=== PATIENT | female | born 1975 | race American Indian/Alaskan Native ===

== ENCOUNTER 2016-06-20 20:10 | Emergency (ER) | payer SELFPAY ==
[2016-06-21 04:03] LABS: Bilirubin,Urine NEG (Negative); Blood,Urine NEG (Negative); Ketones,Urine TR mg/dL (Negative); Leukocyte Esterase,Urine TR (Negative); Mucus,Urine 3+ /HPF; Nitrite,Urine NEG (Negative); Urobilinogen,Urine < 2.0 mg/dL (<2.0)
[2016-06-21] MEDS ORDERED: TYLENOL PO ONE (15:47)
[2016-06-21] MEDS ORDERED: MORPHINE IM ONE (15:47)
--- NOTE | 2016-06-21 15:47 | Emergency Department Report ---
ED General Adult HPI - General Chief complaint: Abdominal Pain Stated complaint: ABDOMINAL AND R LEG PAIN Time Seen by Provider: 06/21/16 15:26 Source: patient, RN notes reviewed Mode of arrival: Ambulatory Limitations: No Limitations - History of Present Illness Initial comments: This is a 40-year-old female, previously unknown to me. Last menstrual period is April 25. She is 4, para 3. Denies chronic medical conditions. Patient presents to the ER with atraumatic right gluteal pain at radius down the right lower extremity to the posterior leg. Pain has been going on for weeks. Increases with range of motion, decreases with rest. It does not radiate distal to the knee. There is no bladder or bowel retention or incontinence. There is no saddle anesthesia. There is no chest pain or shortness of breath. admits to mild abdominal discomfort. This is suprapubic. Has no exacerbating or relieving factors. There is no right lower quadrant pain. No irritative or obstructive urinary symptoms. -: Gradual, week(s) Location: abdomen, right, lower extremity Radiation: extremity Severity scale (0 -10): 9 Consistency: intermittent Improves with: rest Worsens with: movement Associated Symptoms: other (patient incidentally also describes chronic right great toe pain for the past month, after she accidentally dropped something on it.). denies: confusion, chest pain, cough, diaphoresis, fever/chills, headaches, loss of appetite, malaise, nausea/vomiting, rash, seizure, shortness of breath, syncope, weakness - Related Data Previous Rx's Medication Instructions Recorded Last Taken Type Amoxicillin [Amoxicillin TAB] 875 mg PO BID #20 tablet 06/15/14 Unknown Rx Ondansetron [Zofran Odt] 4 mg PO Q8HR PRN #20 tab.rapdis 06/15/14 Unknown Rx Hyoscyamine Subl [Levsin Sl 0.125 0.125 mg SL Q4HR PRN #15 tablet 06/07/15 Unknown Rx TAB] Loperamide [Imodium] 2 mg PO Q2HR #20 capsule 06/07/15 Unknown Rx Ondansetron [Zofran Odt] 4 mg PO Q8HR PRN #10 tab.rapdis 06/07/15 Unknown Rx Famotidine [Pepcid] 20 mg PO BID #10 tablet 02/13/16 Unknown Rx diphenhydrAMINE [Benadryl CAP] 50 mg PO QHS PRN #5 capsule 02/13/16 Unknown Rx predniSONE [Deltasone] 50 mg PO QDAY #5 tab 02/13/16 Unknown Rx Doxylamine/Pyridoxine HCl 1 each PO QHS PRN #30 tablet. 06/21/16 Unknown Rx [Presley Maldonado 10-10 mg Tablet] Vit W-Ca,Fe,FA(<1 mg) 1 each PO QDAY #30 tablet 06/21/16 Unknown Rx [ Vitamins] Allergies Allergy/AdvReac Type Severity Reaction Status Date / Time No Known Allergies Allergy Unverified 06/14/14 23:46 ED Review of Systems ROS: Stated complaint: ABDOMINAL AND R LEG PAIN Other details as noted in HPI Constitutional: denies: fever, malaise Eyes: denies: vision change ENT: denies: epistaxis Respiratory: denies: cough Cardiovascular: denies: palpitations Gastrointestinal: abdominal pain Genitourinary: denies: urgency, dysuria, discharge Musculoskeletal: back pain, arthralgia, myalgia Skin: change in color Neurological: paresthesias. denies: headache, weakness ED Past Medical Hx - Past Medical History Hx Hypertension: Yes - Surgical History Additional Surgical History: d & c 1999 - Social History Smoking Status: Current Every Day Smoker Substance Use Type: None - Medications Home Medications: Home Medications Medication Instructions Recorded Confirmed Last Taken Type Amoxicillin [Amoxicillin TAB] 875 mg PO BID #20 tablet 06/15/14 Unknown Rx Ondansetron [Zofran Odt] 4 mg PO Q8HR PRN #20 tab.rapdis 06/15/14 Unknown Rx Hyoscyamine Subl [Levsin Sl 0.125 0.125 mg SL Q4HR PRN #15 tablet 06/07/15 Unknown Rx TAB] Loperamide [Imodium] 2 mg PO Q2HR #20 capsule 06/07/15 Unknown Rx Ondansetron [Zofran Odt] 4 mg PO Q8HR PRN #10 tab.rapdis 06/07/15 Unknown Rx Famotidine [Pepcid] 20 mg PO BID #10 tablet 02/13/16 Unknown Rx diphenhydrAMINE [Benadryl CAP] 50 mg PO QHS PRN #5 capsule 02/13/16 Unknown Rx predniSONE [Deltasone] 50 mg PO QDAY #5 tab 02/13/16 Unknown Rx Doxylamine/Pyridoxine HCl 1 each PO QHS PRN #30 tablet. 06/21/16 Unknown Rx [Presley Maldonado 10-10 mg Tablet] Vit W-Ca,Fe,FA(<1 mg) 1 each PO QDAY #30 tablet 06/21/16 Unknown Rx [ Vitamins] ED Physical Exam - General Limitations: No Limitations General appearance: alert, in no apparent distress - Head Head exam: Present: atraumatic, normocephalic - Eye Eye exam: Present: normal appearance, EOMI. Absent: nystagmus - ENT ENT exam: Present: normal exam, normal orophraynx, mucous membranes moist, normal external ear exam - Neck Neck exam: Present: normal inspection, full ROM. Absent: tenderness, meningismus - Respiratory Respiratory exam: Present: normal lung sounds bilaterally. Absent: respiratory distress, wheezes, rales, rhonchi, stridor - Cardiovascular Cardiovascular Exam: Present: regular rate, normal rhythm. Absent: systolic murmur, diastolic murmur, rubs, gallop - GI/Abdominal GI/Abdominal exam: Present: soft, normal bowel sounds. Absent: distended, tenderness, guarding, rebound, rigid, pulsatile mass - Rectal Rectal exam: Present: normal inspection - External exam: Present: normal external exam. Absent: erythema, swelling Speculum exam: Present: normal speculum exam Bi-manual exam: Present: normal bi-manual exam, other (escorted by FRANCES Kruse) . Absent: cervical motion tendernes, adnexal tenderness, adnexal mass - Extremities Exam Extremities exam: Present: normal inspection, full ROM, tenderness (emesis to the dorsal aspect of the right great toe. The right great toe is somewhat tender. Ecchymosis is noted.), normal capillary refill, other (bilateral upper extremities are unremarkable and within normal limits. Left lower extremity unremarkable. Right lower extremity within normal limits, with the exception of right great toe pain and ecchymosis.). Absent: pedal edema, joint swelling - Back Exam Back exam: Present: normal inspection, full ROM. Absent: tenderness, CVA tenderness (R), CVA tenderness (L), muscle spasm, paraspinal tenderness, vertebral tenderness - Neurological Exam Neurological exam: Present: alert, oriented X3, normal gait, other (Extraocular movements intact. Tongue midline. No facial droop. Facial sensation intact to light touch in the V1, V2, V3 distribution bilaterally. 5 and 5 strength in 4 extremities.. Sensation is intact to light touch in 4 extremities.). Absent : motor sensory deficit (strength is intact to light touch, pinprick, proprioception.) - Psychiatric Psychiatric exam: Present: normal affect, normal mood - Skin Skin exam: Present: warm, dry, intact, normal color. Absent: rash ED Course Vital Signs 06/20/16 06/21/16 06/21/16 21:03 11:28 17:43 Temperature 98.7 F 98.1 F Pulse Rate 100 H 88 78 Respiratory 20 18 16 Rate Blood Pressure 126/81 Blood Pressure 157/94 149/61 [Right] O2 Sat by Pulse 100 100 98 Oximetry 06/21/16 17:44 Temperature Pulse Rate Respiratory 20 Rate Blood Pressure Blood Pressure [Right] O2 Sat by Pulse Oximetry - Reevaluation(s) Reevaluation #1: 06/21/16 17:03 Differential diagnosis: , urinary tract infection, radiculopathy Assessment and plan: 40-year-old female with probable radiculopathy and incidental . Currently her vital signs are reassuring. She is afebrile with no abdominal tenderness, rebound or guarding. Her initial urinalysis was contaminated. Repeat urinalysis demonstrated no indication of infectious etiology. My transabdominal ultrasound demonstrates an intrauterine with heartbeat. Formal obstetrics ultrasound has been performed , interpretation is pending. She will be treated with acetaminophen for her back pain. By her exam and history, there is no clinical indication of epidural compression syndrome at this time. Strength, sensation is intact to light touch, pinprick and proprioception in the lower extremities. Given her advanced age, she is instructed to follow up with outpatient PHOTOCOMPOSING MACHINE OPERATOR as she is high risk by her age. She may have an incidental subacute to chronic fracture in the right great toe. Does not appear to be acutely infected. Andrew tape is ordered. Patient's declined x-ray. I think that this is reasonable given that it has been present for 4 weeks. She can weight-bear as tolerated and follow up with her primary care or orthopedics for this. 06/21/16 17:08 Reevaluation #2: 06/21/16 17:45 Transvaginal ultrasound him stretch 9 week intrauterine . Incidental subchorionic hemorrhages are noted. This is the most likely etiology of the patient's discomfort. She is Rh+. She will be discharged with instructions to follow up with outpatient PHOTOCOMPOSING MACHINE OPERATOR. Return precautions were extensively reviewed. 06/21/16 17:46 - Procedure Description Procedures done: A 4 x 4 swab is folded up, and placed between the right great toe and second toe. Toes are then taped with silk tape to andrew tape/splints the right great toe. ED Medical Decision Making - Lab Data Result diagrams: 06/21/16 15:51 Vital Signs 06/20/16 06/21/16 21:03 11:28 Temperature 98.7 F 98.1 F Pulse Rate 100 H 88 Respiratory 20 18 Rate Blood Pressure 126/81 Blood Pressure 157/94 [Right] O2 Sat by Pulse 100 100 Oximetry Lab Results 06/21/16 06/21/16 06/21/16 Range/Units 02:04 15:45 15:51 WBC (4.5-11.0) K/mm3 RBC (3.65-5.03) M/mm3 Hgb (10.1-14.3) gm/dl Hct (30.3-42.9) % MCV (79-97) fl MCH (28-32) pg MCHC (30-34) % RDW (13.2-15.2) % Plt Count (140-440) K/mm3 HCG, Quant [id number] H (0-4) mIU/mL Urine Color Yellow Yellow (Yellow) Urine Turbidity Slightly-cloudy Clear (Clear) Urine pH 5.0 5.0 (5.0-7.0) Ur Specific [place] 1.033 H 1.023 (1.003-1.030) Urine Protein 30 mg/dl <15 mg/dl (Negative) mg/dL Urine Glucose (UA) 50 Neg (Negative) mg/dL Urine Ketones Tr Neg (Negative) mg/dL Urine Blood Neg Neg (Negative) Urine Nitrite Neg Neg (Negative) Urine Bilirubin Neg Neg (Negative) Urine Urobilinogen < 2.0 < 2.0 (<2.0) mg/dL Ur Leukocyte Esterase Tr Tr (Negative) Urine WBC (Auto) 29.0 H 6.0 (0.0-6.0) /HPF Urine RBC (Auto) 14.0 7.0 (0.0-6.0) /HPF U Epithel Cells (Auto) 15.0 H 1.0 (0-13.0) /HPF Urine Bacteria (Auto) 1+ (Negative) /HPF Urine Mucus 3+ 2+ /HPF Urine HCG, Qual Positive A (Negative) Blood Type Antibody Screen 06/21/16 06/21/16 Range/Units 15:51 15:55 WBC 9.4 (4.5-11.0) K/mm3 RBC 4.26 (3.65-5.03) M/mm3 Hgb 12.5 (10.1-14.3) gm/dl Hct 36.9 (30.3-42.9) % MCV 87 (79-97) fl MCH 29 (28-32) pg MCHC 34 (30-34) % RDW 12.7 L (13.2-15.2) % Plt Count 237 (140-440) K/mm3 HCG, Quant (0-4) mIU/mL Urine Color (Yellow) Urine Turbidity (Clear) Urine pH (5.0-7.0) Ur Specific [place] (1.003-1.030) Urine Protein (Negative) mg/dL Urine Glucose (UA) (Negative) mg/dL Urine Ketones (Negative) mg/dL Urine Blood (Negative) Urine Nitrite (Negative) Urine Bilirubin (Negative) Urine Urobilinogen (<2.0) mg/dL Ur Leukocyte Esterase (Negative) Urine WBC (Auto) (0.0-6.0) /HPF Urine RBC (Auto) (0.0-6.0) /HPF U Epithel Cells (Auto) (0-13.0) /HPF Urine Bacteria (Auto) (Negative) /HPF Urine Mucus /HPF Urine HCG, Qual (Negative) Blood Type O POSITIVE Antibody Screen Negative - Radiology Data Radiology results: report reviewed, image reviewed Transvaginal And transabdominal ultrasound demonstrated intrauterine . The one to 9 weeks and 1 day gestation. heart motion is noted. 2 subchorionic bleeds are noted. Complex left-sided ovarian cyst. Fundal fibroid. Critical care attestation.: If time is entered above; I have spent that time in minutes in the direct care of this critically ill patient, excluding procedure time. ED Disposition Clinical Impression: Disposition: DISCHARGED TO HOME OR SELFCARE Is pt being admited?: No Does the pt Need Aspirin: No Condition: Stable Instructions: Abdominal Pain (ED), Lumbar Radiculopathy (ED) Additional Instructions: Take the medications as directed. Rest and avoid heavy lifting. Follow up with a PHOTOCOMPOSING MACHINE OPERATOR doctor within the next week. Please note that because of your age , you are considered advanced maternal age and this is considered a high risk . Take acetaminophen every 4-6 hours as needed for pain. Return to the ER right away with new pain, worsened pain, migration of pain, fevers or chills, intractable nausea or vomiting, inability to tolerate liquid feeds. "[facility]OTOCOMPOSING [facility]PER[facility]" is a local obstetrics group. Transvaginal ultrasound demonstrated 2 areas of bleeding within the uterus. This is consistent with subchorionic hemorrhage. This is consistent with a threatened possible miscarriage. Rest and avoid heavy lifting. Avoid strenuous physical activity. Avoid sexual activity. Do not engage in sexual activity until cleared by your PHOTOCOMPOSING MACHINE OPERATOR doctor. In addition, your blood pressure was slightly elevated. This needs to be followed up by her primary care doctor or PHOTOCOMPOSING MACHINE OPERATOR doctor. Complications of hypertension during included stroke, seizure, disability. Follow up with an PHOTOCOMPOSING MACHINE OPERATOR doctor within the next 7-10 days. Prescriptions: Doxylamine/Pyridoxine HCl [Presley Maldonado 10-10 mg Tablet] 1 each PO QHS PRN #30 tablet. PRN Reason: Nausea Vit W-Ca,Fe,FA(<1 mg) [ Vitamins] 1 each PO QDAY #30 tablet Referrals: PRIMARY CAREMD [Primary Care Provider] - 3-5 Days WILLI GODINEZ MD [Staff Physician] - 3-5 Days VENTURA ONTIVEROS MD [Staff Physician] - 3-5 Days [facility] [Provider Group] - 3-5 Days
[2016-06-21 16:05] LABS: Hematocrit 36.9 % (30.3-42.9); Hemoglobin 12.5 gm/dl (10.1-14.3); Mean Corpuscular HGB Conc 34 % (30-34); Mean Corpuscular Hemoglobin 29 pg (28-32); Mean Corpuscular Volume 87 fl (79-97); Platelet Count 237 K/mm3 (140-440); Red Blood Count 4.26 M/mm3 (3.65-5.03); Red Cell Distribution Width 12.7 % (13.2-15.2); White Blood Count 9.4 K/mm3 (4.5-11.0)
[2016-06-21 16:13] LABS: Bacteria,Urine 1+ /HPF (Negative); Bilirubin,Urine NEG (Negative); Blood,Urine NEG (Negative); Ketones,Urine NEG (Negative); Leukocyte Esterase,Urine TR (Negative); Mucus,Urine 2+ /HPF; Nitrite,Urine NEG (Negative); Protein,Urine <15 mg/dL mg/dL (Negative); Urobilinogen,Urine < 2.0 mg/dL (<2.0)
--- NOTE | 2016-06-21 16:57 | Ultrasound Report ---
OB ultrasound: Endovaginal and transabdominal imaging utilized. The uterus measures approximately 7.6 x 7.9 x 9.9 cm. There appears to be a 3.1 cm fundal fibroid. There is an intrauterine gestational sac containing a yolk sac and a single pole having a crown-rump length of 23.9 mm. This is equivalent to 9 weeks one day gestation. There is heart motion of 173 beats per minute. 2 subchorionic hypodensities are noted. The larger measures 4.3 cm in size. The right ovary measures 4.9 cm containing 2 cysts measuring 13 and 25 mm. The left ovary measures 2.9 cm containing a 16mm complex cyst. No free fluid. Impressions: 1. Bilateral ingram IUP. 2. 2 subchorionic hemorrhage is one of which is quite large. 3. Fundal fibroid. 4. Bilateral ovarian cysts.
[2016-06-21 17:44] VITALS: BP 149/61
== END 2016-06-21 17:55 | disposition home or self-care (01) ==
LOC: ED 20:10
DX: O9A.211 Injury, poisoning and certain other consequences of external causes complicating pregnancy, first trimester (principal); S90.111A Contusion of right great toe without damage to nail, initial encounter; O16.1 Unspecified maternal hypertension, first trimester; O99.331 Smoking (tobacco) complicating pregnancy, first trimester; X58.XXXA Exposure to other specified factors, initial encounter; Y93.89 Activity, other specified; Y99.8 Other external cause status; Y92.89 Other specified places as the place of occurrence of the external cause
CPT/HCPCS: 36415; 76801; 76817; 81001; 81025; 84702; 85027; 86850; 86900; 86901; 96372; 99285; J2270

== ENCOUNTER 2017-01-22 10:29 | Inpatient (IN) | payer MEDICAID, OTHER ==
[2017-01-22] MEDS ORDERED: PITOCin/NS 20 UNIT/1000ML DRIP 20 UNITS/1,000 ML BAG IV SCH ×2 (12:00→16:00)
[2017-01-22] MEDS ORDERED: LACTATED RINGERS 1,000 ML IV SCH ×3 (12:00→23:45)
[2017-01-22] MEDS ORDERED: PITOCin/NS 30 UNIT/500ML 30 UNITS/500 ML BAG IV SCH (12:00)
[2017-01-22] MEDS ORDERED: STADOL IV PRN (12:31)
[2017-01-22 13:40] LABS: Hematocrit 36.1 % (30.3-42.9); Hemoglobin 11.3 gm/dl (10.1-14.3); Mean Corpuscular HGB Conc 31 % (30-34); Mean Corpuscular Volume 79 fl (79-97); Platelet Count 136 K/mm3 (140-440); Red Cell Distribution Width 16.6 % (13.2-15.2); White Blood Count 7.5 K/mm3 (4.5-11.0)
[2017-01-22 13:43] LABS: Mean Corpuscular Hemoglobin 25 pg (28-32)
[2017-01-22 13:56] LABS: Alanine Aminotransferase 7 units/L (7-56); Lactate Dehydrogenase 197 units/L (91-180); Uric Acid 6.1 mg/dL (3.5-7.6)
[2017-01-22 13:57] LABS: Bacteria,Urine 1+ /HPF (Negative); Bilirubin,Urine NEG (Negative); Blood,Urine MOD (Negative); Ketones,Urine NEG (Negative); Leukocyte Esterase,Urine SM (Negative); Mucus,Urine FEW /HPF; Nitrite,Urine NEG (Negative); Urobilinogen,Urine < 2.0 mg/dL (<2.0)
--- NOTE | 2017-01-22 14:29 | History and Physical Report ---
History of Present Illness Date of examination: 01/22/17 Date of admission: 01/22/17 11:15 Chief complaint: Intense Labor Pains; denies HAs, visual changes, and nausea. History of present illness: Late entry to care, 2nd trimester complicated by abnormal Quad screen followed by normal InformaSeq, +Trichomonas followed by a Negative DIMAS, and a Breast mass (to Follow with Dr. Mercedes); Co-managed with [facility] due to AMA. Past History Past Medical History: no pertinent history Past Surgical History: HOSPICE NURSE/uterine surgery (1997: D&C) HOSPICE NURSE History: herpes, trichomonas Family/Genetic History: hypertension (Mother and MGM), stroke (Mother and Aunt) Social history: single, smoking (3-4 Cigarettes daily) - Obstetrical History Expected Date of Delivery: 01/22/17 Actual Gestation: 40 Week(s) 0 Day(s) : 5 Para: 3 Hx # Term Pregnancies: 3 Spontaneous Abortions: 1 Number of Living Children: 3 #1 Gender: Female year: 1,[birth year] Birthweight: 3.175 kg Gestational age at delivery: 40 Complications: none #2 Infant Gender: Female year: 2,001 Birthweight: 2.863 kg Method of Delivery: Vaginal Gestational age at delivery: 39 Complications: none #3 Gender: Female year: 2,013 Birthweight: 2.438 kg Method of Delivery: Vaginal Gestational age at delivery: 38 Medications and Allergies Allergies Allergy/AdvReac Type Severity Reaction Status Date / Time No Known Allergies Allergy Unverified 06/14/14 23:46 Home Medications Medication Instructions Recorded Confirmed Last Taken Type Amoxicillin [Amoxicillin TAB] 875 mg PO BID #20 tablet 06/15/14 Unknown Rx Ondansetron [Zofran Odt] 4 mg PO Q8HR PRN #20 tab.rapdis 06/15/14 Unknown Rx Hyoscyamine Subl [Levsin Sl 0.125 0.125 mg SL Q4HR PRN #15 tablet 06/07/15 Unknown Rx TAB] Loperamide [Imodium] 2 mg PO Q2HR #20 capsule 06/07/15 Unknown Rx Ondansetron [Zofran Odt] 4 mg PO Q8HR PRN #10 tab.rapdis 06/07/15 Unknown Rx Famotidine [Pepcid] 20 mg PO BID #10 tablet 02/13/16 Unknown Rx diphenhydrAMINE [Benadryl CAP] 50 mg PO QHS PRN #5 capsule 02/13/16 Unknown Rx predniSONE [Deltasone] 50 mg PO QDAY #5 tab 02/13/16 Unknown Rx Doxylamine/Pyridoxine HCl 1 each PO QHS PRN #30 tablet. 06/21/16 Unknown Rx [Diclegijasmin Dr 10-10 mg Tablet] Vit W-Ca,Fe,FA(<1 mg) 1 each PO QDAY #30 tablet 06/21/16 Unknown Rx [ Vitamins] Active Meds: Active Medications Butorphanol Tartrate (Stadol) 2 mg IV Q2H PRN PRN Reason: Labor Pain Last Admin: 01/22/17 12:59 Dose: 2 mg Lactated Ringer's (Lactated Ringers) 1,000 mls @ 125 mls/hr IV DIRECT REJI Last Admin: 01/22/17 12:20 Dose: 125 mls/hr Oxytocin/Sodium Chloride (Pitocin/Ns 20 Unit/1000ml Drip) 20 units in 1,000 mls @ 0 mls/hr IV DIRECT REJI PRN Reason: As Directed Oxytocin/Sodium Chloride (Pitocin/Ns 30 Unit/500ml) 30 units in 500 mls @ 4 mls /hr IV TITR REJI PRN Reason: Protocol Last Titration: 01/22/17 13:41 Dose: 8 ml/hr, 8 mls/hr Review of Systems All systems: negative - Vital Signs Vital signs: Vital Signs Pulse Pulse Ox 79 98 01/22/17 10:32 01/22/17 10:32 Temp Pulse Resp BP Pulse Ox 96.6 F L 75 18 194/88 100 01/22/17 12:05 01/22/17 14:22 01/22/17 12:05 01/22/17 14:22 01/22/17 12:51 - Physical Exam Breasts: Positive: normal Cardiovascular: Regular rate Lungs: Positive: Clear to auscultation, Normal air movement Abdomen: Positive: normal appearance, soft, normal bowel sounds Genitourinary (Female): Positive: normal external genitalia, normal perenium Vagina: Positive: normal moisture Uterus: Positive: enlarged Anus/Rectum: Positive: normal perianal skin, heme negative Extremities: Positive: normal - Obstetrical FHR: category 1 Uterine Contraction Monitor Mode: External Cervical Dilatation: 8 (Moderate amount of clear fluid upon AROM at 1411) Cervical Effacement Percentage: 100 station: 0 Uterine Contraction Pattern: Regular Uterine Tone Measurement Phase: Contraction Uterine Contraction Intensity: Strong/Firm Results Result Diagrams: 01/22/17 11:40 01/22/17 11:40 Abnormal lab results 01/22/17 01/22/17 Range/Units 11:40 11:40 MCH 25 L (28-32) pg RDW 16.6 H (13.2-15.2) % Plt Count 136 L (140-440) K/mm3 Lactate Dehydrogenase 197 H (91-180) units/L All other labs normal. Assessment and Plan A: IUP @40 weeks Category I Tracing Active labor Elevated Blood Pressures GBS Negative P: Admit to L&D per routine orders [facility] Labs Pitocin Augmentation AROM Anticipate
[2017-01-22] MEDS ORDERED: MINERAL OIL ONE (14:34)
[2017-01-22] MEDS ORDERED: APRESOLINE IV PRN (14:40)
[2017-01-22] MEDS ORDERED: XYLOCAINE 2% INFILTRATI ONE ×2 (14:47→15:00)
[2017-01-22] MEDS: XYLOCAINE 2% INFILTRATI PRN ×2 (14:50→15:00)
[2017-01-22] MEDS ORDERED: MINERAL OIL TP PRN (15:00)
[2017-01-22] MEDS ORDERED: ePHEDrine SULFATE IV PRN (15:24)
[2017-01-22] MEDS ORDERED: BRETHINE IVP PRN (15:24)
[2017-01-22] MEDS ORDERED: BRETHINE SUB-Q PRN (15:24)
[2017-01-22] MEDS ORDERED: DULCOLAX PR PRN (15:26)
[2017-01-22] MEDS ORDERED: PHENERGAN PR PRN (15:26)
[2017-01-22] MEDS ORDERED: MILK OF MAGNESIA PO PRN (15:26)
[2017-01-22] MEDS ORDERED: BENADRYL PO PRN (15:26)
[2017-01-22] MEDS ORDERED: ZOFRAN IV PRN (15:26)
[2017-01-22] MEDS ORDERED: TYLENOL PO PRN (15:26)
[2017-01-22] MEDS ORDERED: TUCKS PAD TP PRN (15:26)
[2017-01-22] MEDS ORDERED: LANSINOH TP PRN (15:26)
[2017-01-22] MEDS ORDERED: MAGNESIUM SULFATE 4GM/100ML 4 GM/100 ML BAG IV ONE (15:28)
--- NOTE | 2017-01-22 15:39 | Procedure Note ---
OB Delivery Note - Delivery Date of Delivery: 01/22/17 (1446) Surgeon: GIOVANY TURCIOS Estimated blood loss: 200cc - Vaginal Delivery presentation: vertex Delivery position: OA Intrapartum events: preeclampsia Delivery induction: none Delivery augmentation: rupture of membranes, pitocin Delivery monitor: external FHT, external uterine Route of delivery: Delivery placenta: spontaneous Delivery cord: 3 umbilical vessels Delivery laceration: 1st degree Delivery repair: vicryl Anesthesia: local Delivery comments: of a live 6'10" female under bilateral labial lacerations under IV pain control with Apgars of 8 and 9 at 1446 on 01/22/2017. Infant directly to maternal abd/chest, skin to skin contact. Labial lacerations repaired with 2-0 vicryl on a SH under 2% Lidocaine. Spontaneous delivery of placenta complete and intact with Malik side presenting at 1451. Fundus is firm and midline located 5 below the U. Lochia is scant. Delayed cord clamping and cutting; cord cut by 's sister. Elevated Blood pressures throughout 2nd and 3rd stages (200/88, 190/87, 182/107, 185/102, 188/104). MagSO4 4G loading dose; and 2G hourly x 24 hours ordered. Cord blood collected. Placenta discarded. - Infant A at 1 minute: 8 at 5 minutes: 9 Infant Gender: Female (6'10")
[2017-01-22] MEDS ORDERED: SODIUM CHLORIDE FLUSH SYRINGE 10 ML IV NR (16:00)
[2017-01-22] MEDS ORDERED: MAGNESIUM SULFATE 40GM/1000ML 40 GM/1,000 ML BAG IV SCH (16:00)
[2017-01-22 16:44] LABS: Urine Drugs of Abuse Note Disclamer
[2017-01-22] MEDS: NORCO 5/325 PO PRN (17:06)
[2017-01-22] MEDS: MOTRIN PO PRN (22:08)
[2017-01-22] MEDS: NORMODYNE PO SCH (22:09)
[2017-01-23] MEDS: NORCO 5/325 PO PRN ×3 (00:21→21:55)
[2017-01-23 04:45] LABS: Hematocrit 32.2 % (30.3-42.9); Hemoglobin 10.3 gm/dl (10.1-14.3)
[2017-01-23] MEDS: MOTRIN PO PRN ×2 (05:22→23:50)
[2017-01-23] MEDS ORDERED: BOOSTRIX IM ONE (06:00)
[2017-01-23] MEDS: NORMODYNE PO SCH ×2 (09:24→21:52)
--- NOTE | 2017-01-23 10:32 | Progress Note ---
Assessment and Plan A: PP Day #1 Preeclampsia P: Follow Routine Orders Continue MagSO4 24 hours Post-Delivery Subjective - Subjective Date of service: 01/23/17 Interval history: Late entry to care, 2nd trimester complicated by abnormal Quad screen followed by normal InformaSeq, +Trichomonas followed by a Negative DIMAS, and a Breast mass (to Follow with Dr. Mercedes); Co-managed with [facility] due to AMA. Patient reports: appetite normal, voiding normally (Adquate Urine Output), pain well controlled, flatus, ambulating normally, other (Denies all s/s of [facility]) [place]: doing well, bottle feeding Objective - Vital Signs Latest vital signs: Vital Signs Temp Pulse Resp BP Pulse Ox 01/23/17 09:24 87 120/68 01/23/17 06:00 98.5 F 74 18 119/68 01/23/17 04:00 98.3 F 68 18 122/66 01/23/17 02:20 98.1 F 87 18 131/70 01/23/17 00:40 98.2 F 84 16 146/82 01/22/17 22:45 98.6 F 88 18 154/76 01/22/17 22:09 83 160/78 01/22/17 20:45 98 F 83 18 160/78 01/22/17 18:35 97.8 F 79 79 H 154/86 01/22/17 18:15 96.7 F L 89 16 158/80 97 01/22/17 18:14 89 158/80 01/22/17 18:11 89 149/76 100 01/22/17 18:06 93 H 140/70 100 01/22/17 18:01 90 145/71 100 01/22/17 17:57 91 H 100 01/22/17 17:56 90 145/69 01/22/17 17:51 86 152/73 100 01/22/17 17:46 90 147/70 100 01/22/17 17:41 83 162/77 100 01/22/17 17:36 84 152/71 100 01/22/17 17:31 82 163/73 100 01/22/17 17:27 82 165/77 99 01/22/17 17:22 75 182/84 01/22/17 17:21 75 100 01/22/17 17:20 80 182/84 01/22/17 17:16 80 157/80 97 01/22/17 17:11 87 165/87 98 01/22/17 17:06 79 166/90 98 01/22/17 17:01 77 166/84 98 01/22/17 16:56 70 176/88 98 17 16:52 70 184/94 17 16:51 69 98 17 16:46 70 165/82 97 01/22/17 16:41 73 175/90 96 01/22/17 16:36 70 171/85 98 1617 16:32 70 181/86 01/22/17 16:31 69 98 16 16:27 73 161/79 01/22/17 16:26 72 99 01/22/17 16:21 75 184/98 01/22/17 16:16 77 165/94 01/22/17 16:11 80 165/89 01/22/17 16:07 83 160/79 01/22/17 16:01 86 169/81 01/22/17 15:56 79 154/75 01/22/17 15:52 75 169/83 01/22/17 15:48 96.9 F L 73 18 181/97 01/22/17 15:47 73 181/97 01/22/17 15:37 78 179/90 01/22/17 15:21 80 188/104 01/22/17 15:19 85 185/102 01/22/17 15:07 92 H 182/107 01/22/17 15:00 97.0 F L 86 18 190/81 01/22/17 14:52 86 190/81 01/22/17 14:37 80 200/88 01/22/17 14:22 75 194/88 01/22/17 14:15 78 188/99 01/22/17 14:08 88 184/94 01/22/17 13:53 77 185/87 01/22/17 13:36 73 153/73 01/22/17 13:22 80 157/74 01/22/17 13:07 87 181/96 01/22/17 12:52 84 182/108 01/22/17 12:51 91 H 100 01/22/17 12:46 79 100 01/22/17 12:41 71 100 01/22/17 12:38 76 164/89 88 01/22/17 12:36 71 97 01/22/17 12:31 72 100 01/22/17 12:26 85 100 01/22/17 12:22 80 161/90 01/22/17 12:21 86 100 01/22/17 12:16 86 100 01/22/17 12:11 81 100 01/22/17 12:06 84 153/90 97 01/22/17 12:05 96.6 F L 81 18 153/90 01/22/17 12:04 76 139/84 01/22/17 12:01 84 100 01/22/17 11:33 76 173/90 01/22/17 11:13 79 99 01/22/17 11:08 84 96 01/22/17 11:03 83 97 01/22/17 10:58 79 97 01/22/17 10:53 88 99 01/22/17 10:48 86 99 01/22/17 10:43 82 98 01/22/17 10:37 84 98 01/22/17 10:32 79 98 Intake and Output 01/22/17 01/23/17 01/23/17 22:59 06:59 14:59 Intake Total 120 1080 Output Total 1950 2700 Balance -1830 -1620 Intake: Intake, Free Water 120 1080 Output: Urine 1950 2700 Indwelling Catheter 1300 2700 Uretheral ([place]) 650 Other: Total, Output Amount 800 900 - Exam Breasts: Present: normal Cardiovascular: Present: Regular rate Lungs: Present: Clear to auscultation, Normal air movement Abdomen: Present: normal appearance, soft, normal bowel sounds Uterus: Present: normal, firm, fundal height below umbilicus Extremities: Present: normal - Labs Labs: Abnormal lab results 01/22/17 01/22/17 01/23/17 Range/Units 11:40 11:40 01:13 MCH 25 L (28-32) pg RDW 16.6 H (13.2-15.2) % Plt Count 136 L (140-440) K/mm3 Magnesium 5.60 H (1.7-2.3) mg/dL Lactate Dehydrogenase 197 H (91-180) units/L 01/23/17 Range/Units 07:50 MCH (28-32) pg RDW (13.2-15.2) % Plt Count (140-440) K/mm3 Magnesium 6.80 H (1.7-2.3) mg/dL Lactate Dehydrogenase (91-180) units/L
--- NOTE | 2017-01-24 09:12 | Progress Note ---
Assessment and Plan O: BP WNL S/P Mag A: PPD #2 - stable P; Discharge home today F/U in one week for BP check Subjective - Subjective Date of service: 01/24/17 Principal diagnosis: Patient reports: appetite normal [place]: doing well Objective - Vital Signs Latest vital signs: Vital Signs Temp Pulse Resp BP 01/24/17 05:30 98.3 F 72 18 138/70 01/24/17 01:15 98.5 F 73 18 133/63 01/23/17 23:50 20 01/23/17 21:55 20 01/23/17 21:52 80 150/76 01/23/17 21:50 98.3 F 80 18 150/76 01/23/17 16:30 97.6 F 82 18 149/81 01/23/17 12:30 98.2 F 86 19 121/76 01/23/17 09:24 87 120/68 Intake and Output 01/23/17 01/24/17 01/24/17 22:59 06:59 14:59 Intake Total 720 600 Output Total 900 Balance -180 600 Intake: Oral 480 Intake, Free Water 240 600 Output: Urine 900 Void 900 Other: Total, Intake Amount 240 Total, Output Amount 300 # Voids Void 2 - Exam Breasts: Present: deferred Cardiovascular: Present: Regular rate Lungs: Present: Clear to auscultation Abdomen: Present: soft Vulva: both: normal Uterus: Present: fundal height below umbilicus Extremities: Present: normal Deep Tendon Reflex Grade: Dull/Diminished +1 - Labs Labs: Abnormal lab results 01/23/17 Range/Units 13:52 Magnesium > 6.20 H (1.7-2.3) mg/dL
--- NOTE | 2017-01-24 09:13 | Discharge Summary ---
Providers - Providers Date of Admission: 01/22/17 11:15 Date of discharge: 01/24/17 Attending physician: CARLEY PETERSON MD Primary care physician: CARLEY PETERSON MD Hospitalization Reason for admission: active labor Delivery: Episiotomy: none Laceration: none complications: none Discharge diagnosis: IUP at term delivered baby: female Disposition: DC- TO HOME OR SELFCARE Plan - Provider Discharge Summary Activity: routine, no sex for 6 weeks, no strenuous exercise Diet: routine Instructions: routine Additional instructions: [] Smoking cessation referral if applicable(refer to patient education folder for contact #) [] Refer to [facility] Booklet Call your doctor immediately for: * Fever > 100.5 * Heavy vaginal bleeding ( >1 pad per hour) * Severe persistent headache * Shortness of breath * Reddened, hot, painful area to leg or breast * Drainage or odor from incision. * Keep incision clean and dry at all times and follow doctor's instructions regarding bathing/showering - Follow up plan Follow up: [facility] [Provider Group] - 6 Weeks
[2017-01-24] MEDS: NORMODYNE PO SCH (11:23)
[2017-01-24 12:39] VITALS: BP 128/68
== END 2017-01-24 12:55 | disposition home or self-care (01) | DRG 774 ==
LOC: TRG 10:29 → LD 11:15 → OB 18:43
PROVIDERS: ADMIT Obstetrics & Gynecology; ATTEND Obstetrics & Gynecology
PROC: 10E0XZZ Delivery of Products of Conception, External Approach (ICD-10-PCS; principal; 2017-01-22)
PROC: 0HQ9XZZ Repair Perineum Skin, External Approach (ICD-10-PCS; 2017-01-22)
DX: O14.94 Unspecified pre-eclampsia, complicating childbirth (principal); Z3A.40 40 weeks gestation of pregnancy; Z37.0 Single live birth; O70.0 First degree perineal laceration during delivery
CPT/HCPCS: 36415; 80307; 81001; 82565; 83615; 83735; 84450; 84460; 84550; 85014; 85018; 85027; 86850; 86900; 86901; 90471; 90715; J0360; J0595; J2590; J3475; J7120

== ENCOUNTER 2018-03-25 12:25 | Emergency (ER) | payer OTHER ==
[2018-03-25 12:45] VITALS: BP 152/87
[2018-03-25] MEDS ORDERED: TESSALON PERLES PO ONE (15:38)
--- NOTE | 2018-03-25 15:43 | Emergency Department Report ---
ED General Adult HPI - General Chief complaint: Skin Rash Stated complaint: ALLERGIC REACTION Time Seen by Provider: 03/25/18 15:24 Source: patient Mode of arrival: Ambulatory Limitations: No Limitations - History of Present Illness Initial comments: Patient presents to the emergency Department chief complaint of a cough and sore throat for the last 3 days. Patient complains of fevers and chills. Patient has no other complaints. -: Gradual Location: mouth Radiation: non-radiation Severity scale (0 -10): 2 Quality: dull Improves with: cold therapy Worsens with: eating Associated Symptoms: denies other symptoms Treatments Prior to Arrival: none - Related Data Previous Rx's Medication Instructions Recorded Last Taken Type Amoxicillin 500 mg PO TID #21 capsule 03/25/18 Unknown Rx guaiFENesin/CODEINE [Robitussin AC] 5 ml PO BID #180 oral.liqd 03/25/18 Unknown Rx Allergies Allergy/AdvReac Type Severity Reaction Status Date / Time No Known Allergies Allergy Unverified 06/14/14 23:46 ED Review of Systems ROS: Stated complaint: ALLERGIC REACTION Other details as noted in HPI Comment: All other systems reviewed and negative Constitutional: denies: chills, fever Eyes: denies: eye pain, eye discharge, vision change ENT: throat pain. denies: ear pain Respiratory: denies: cough, shortness of breath, wheezing Cardiovascular: denies: chest pain, palpitations Endocrine: no symptoms reported Gastrointestinal: denies: abdominal pain, nausea, diarrhea Genitourinary: denies: urgency, dysuria, discharge Musculoskeletal: denies: back pain, joint swelling, arthralgia Skin: denies: rash, lesions Neurological: denies: headache, weakness, paresthesias Psychiatric: denies: anxiety, depression Hematological/Lymphatic: denies: easy bleeding, easy bruising ED Past Medical Hx - Past Medical History Hx Hypertension: No Hx Congestive Heart Failure: No Hx Diabetes: No Hx Deep Vein Thrombosis: No Hx Renal Disease: No Hx Sickle Cell Disease: No Hx Seizures: No Hx Asthma: No Hx COPD: No Hx HIV: No Additional medical history: herpes - Surgical History Additional Surgical History: d & c 1999 - Social History Smoking Status: Current Every Day Smoker Substance Use Type: None - Medications Home Medications: Home Medications Medication Instructions Recorded Confirmed Last Taken Type Amoxicillin 500 mg PO TID #21 capsule 03/25/18 Unknown Rx guaiFENesin/CODEINE [Robitussin AC] 5 ml PO BID #180 oral.liqd 03/25/18 Unknown Rx ED Physical Exam - General Limitations: No Limitations General appearance: alert, in no apparent distress - Head Head exam: Present: atraumatic, normocephalic - Eye Eye exam: Present: normal appearance, PERRL, EOMI - ENT ENT exam: Present: mucous membranes moist, other (peritonsillar exudates) - Neck Neck exam: Present: normal inspection - Respiratory Respiratory exam: Present: normal lung sounds bilaterally. Absent: respiratory distress - Cardiovascular Cardiovascular Exam: Present: regular rate, normal rhythm. Absent: systolic murmur, diastolic murmur, rubs, gallop - GI/Abdominal GI/Abdominal exam: Present: soft, normal bowel sounds - Extremities Exam Extremities exam: Present: normal inspection - Back Exam Back exam: Present: normal inspection - Neurological Exam Neurological exam: Present: alert, oriented X3 - Psychiatric Psychiatric exam: Present: normal affect, normal mood - Skin Skin exam: Present: warm, dry, intact, normal color. Absent: rash ED Course Vital Signs 03/25/18 12:42 Temperature 98.2 F Pulse Rate 95 H Respiratory 18 Rate Blood Pressure 152/87 O2 Sat by Pulse 97 Oximetry ED Medical Decision Making - Medical Decision Making Discussed plan of care with patient Critical care attestation.: If time is entered above; I have spent that time in minutes in the direct care of this critically ill patient, excluding procedure time. ED Disposition Clinical Impression: Pharyngitis, Cough Disposition: DC-01 TO HOME OR SELFCARE Is pt being admited?: No Does the pt Need Aspirin: No Condition: Stable Instructions: Pharyngitis (ED), Cold Symptoms (ED) Additional Instructions: return if worse Prescriptions: Amoxicillin 500 mg PO TID #21 capsule guaiFENesin/CODEINE [Robitussin AC] 5 ml PO BID #180 oral.liqd Referrals: PRIMARY CARE, [Primary Care Provider] - 3-5 Days Time of Disposition: 15:43
== END 2018-03-25 16:02 | disposition home or self-care (01) ==
LOC: ED 12:25
DX: J02.9 Acute pharyngitis, unspecified (principal); R05 Cough; R50.9 Fever, unspecified; F17.200 Nicotine dependence, unspecified, uncomplicated
CPT/HCPCS: 99282